=== PATIENT | female | born 1950 | race Caucasian/White ===

== ENCOUNTER 2022-01-06 16:49 | Observation (INO) ==
[2022-01-07] MEDS ORDERED: *HR* Dextrose 50 % in Water (Syg) 50 ML SYRINGE IVP PRN (02:55)
[2022-01-07] MEDS ORDERED: Dextrose Gel 15 GM/37.5 ML TUBE PO PRN ×2 (02:55)
[2022-01-07] MEDS ORDERED: D5% in Water 1,000 ML IVC PRN (02:55)
[2022-01-07] MEDS ORDERED: Ondansetron 4 MG/2 ML VIAL IVP PRN (02:56)
[2022-01-07] MEDS ORDERED: Naloxone 0.4 MG/ML INJ IVP PRN (02:56)
[2022-01-07] MEDS ORDERED: Acetaminophen 325 MG TABLET PO PRN (02:56)
[2022-01-07] MEDS ORDERED: Nitroglycerin 0.4 MG TAB.SUBL SL PRN (03:00)
[2022-01-07 03:26] LABS: White Blood Count 8.2 K/mcL (4.3-11.1)
[2022-01-07 03:27] LABS: Basophils % 0.4 %; Eosinophils # 0.1 K/mcL (0.0-0.6); Eosinophils % 1.7 %; Hematocrit 37.8 % (35.3-44.9); Immature Granulocytes % 0.4 % (0-4); Lymphocytes # 3.2 K/mcL (0.6-4.6); Lymphocytes % 38.7 %; Mean Corpuscular HGB Conc 34.4 g/dL (31.6-35.5); Mean Corpuscular Hemoglobin 29.7 pg (28.0-33.3); Mean Corpuscular Volume 86.3 fL (83.0-100.0); Mean Platelet Volume 9.1 fL (9.4-12.4); Monocytes # 0.4 K/mcL (0.0-1.3); Monocytes % 5.4 %; Neutrophils # 4.4 K/mcL (1.6-8.9); Platelet Count 266 K/mcL (140-400); Red Blood Count 4.38 M/mcL (3.82-4.97); Red Cell Distribution Width 12.4 % (11.5-14.5); Segmented Neutrophils % 53.4 %
[2022-01-07 03:48] LABS: INR 1.7; Prothrombin Time 18.8 Seconds (9.4-12.1)
[2022-01-07 03:50] LABS: % Iron Saturation 24 % (15-50); Alanine Aminotransferase 20 Units/L (7-52); Albumin 3.7 g/dL (3.5-5.7); Albumin/Globulin Ratio 1.2 (1.1-2.2); Alkaline Phosphatase 70 Units/L (34-104); Aspartate Amino Transferase 21 Units/L (13-39); BUN/Creatinine Ratio 34 (6-26); Bilirubin,Total 0.3 mg/dL (0.3-1.0); Blood Urea Nitrogen 23 mg/dL (8-23); Calcium 9.9 mg/dL (8.6-10.3); Carbon Dioxide 26 mEq/L (23-29); Chloride 104 mEq/L (98-107); Chol/HDL Ratio 4.2 (0-4.9); Cholesterol 193 mg/dL (< 200); Glucose 133 mg/dL (70-105); HDL Cholesterol 46 mg/dL (40-59); Iron 90 mcg/dL (50-170); LDL Cholesterol,Calculated 115 mg/dL (< 100); Magnesium 1.7 mg/dL (1.6-2.6); Osmolality,Calculated 294 (280-300); Potassium 3.9 mEq/L (3.5-5.1); Sodium 139 mEq/L (136-145); Total Protein 6.7 g/dL (6.4-8.9); Transferrin 265 mg/dL (203-362); Triglycerides 159 mg/dL (< 150)
[2022-01-07 03:51] LABS: Activated Partial Thrombo Time 36.5 Seconds (26.0-36.0)
[2022-01-07] MEDS ORDERED: Morphine Sulfate 2 MG/ML SYRINGE IVP PRN (04:00)
[2022-01-07 04:02] LABS: Thyroid Stimulating Hormone 4.677 mcIU/mL (0.340-5.600)
[2022-01-07] MEDS ORDERED: *HR* Heparin 5,000 UNIT/ML VIAL IVP PRN ×2 (04:06)
[2022-01-07] MEDS ORDERED: *HR* Heparin 5,000 UNIT/ML VIAL IVP ONE (04:06)
[2022-01-07 04:08] LABS: Ferritin 172 ng/mL (10-120)
[2022-01-07] MEDS ORDERED: Heparin 25,000UNIT/250ML 1/2NS 25,000 UNIT/250 ML IV.SOLN IVC SCH ×2 (04:15→12:50)
[2022-01-07 04:18] LABS: Estimated Average Glucose 134 mg/dl; Hemoglobin A1C 6.3 %
[2022-01-07 04:45] LABS: Folate > 22.3 ng/mL (3.0-16.0); Vitamin B12 918 pg/mL (250-1100)
[2022-01-07] MEDS: Insulin LISPRO 300 UNITS/3 ML VIAL SUBQ SCH ×2 (06:57→11:48)
[2022-01-07] MEDS ORDERED: Aspirin Enteric Coated 81 MG Tablet PO SCH (09:00)
[2022-01-07 10:01] LABS: Bacteria,Urine Many per hpf (None-Few); Bilirubin,Urine Negative (Negative); Blood,Urine Negative (Negative); Budding Yeast,Urine Few per hpf (None Seen); Clarity,Urine Turbid (Clear); Color,Urine Light-Yellow (Yellow); Glucose,Urine (UA) Normal (Normal); Ketones,Urine Negative (Negative); Leukocyte Esterase,Urine Large (Negative); Mucus,Urine Few per lpf (None-Few); Nitrite,Urine Positive (Negative); PH,Urine 5.5 pH Units (5.0-8.0); Protein,Urine Trace mg/dL (Neg-Trace); Specific Gravity,Urine 1.015 (1.010-1.025); Urobilinogen,Urine Normal (Normal); WBC,Urine TNTC per hpf (0-3)
[2022-01-07 10:28] VITALS: BP 167/88; PULSE 63; TEMP 98.1; O2SAT 97
== END 2022-01-07 14:45 | disposition home or self-care (01) ==
LOC: 3BNU → SUATTDRO 22:06
PROVIDERS: ADMIT Pharmacist; ATTEND Internal Medicine

== ENCOUNTER 2022-03-12 15:06 | Inpatient (IN) ==
[2022-03-12] MEDS ORDERED: 0.9 % Sodium Chloride 500 ML IVC ONE (18:06)
[2022-03-12] MEDS ORDERED: Acetaminophen 325 MG TABLET PO PRN (18:46)
[2022-03-12] MEDS ORDERED: Ondansetron 4 MG/2 ML VIAL IVP PRN (18:46)
[2022-03-12] MEDS ORDERED: Naloxone 0.4 MG/ML INJ IVP PRN (18:46)
[2022-03-12 20:32] LABS: Magnesium 1.7 mg/dL (1.6-2.6); Phosphorous 2.5 mg/dL (2.7-4.5)
[2022-03-12 21:21] LABS: INR 1.2
[2022-03-12 21:23] LABS: Activated Partial Thrombo Time 27.9 Seconds (26.0-36.0)
[2022-03-12 21:30] LABS: Heparin anti-factor XA UFH < 0.04 IU/mL (0.30-0.70)
[2022-03-12] MEDS ORDERED: *HR* Heparin 5,000 UNIT/ML VIAL IVP ONE (21:33)
[2022-03-12] MEDS ORDERED: *HR* Heparin 5,000 UNIT/ML VIAL IVP PRN (21:33)
[2022-03-12] MEDS ORDERED: D5% in Water 1,000 ML IVC PRN (21:45)
[2022-03-12] MEDS ORDERED: *HR* Dextrose 50 % in Water (Syg) 50 ML SYRINGE IVP PRN (21:45)
[2022-03-12] MEDS ORDERED: Dextrose Gel 15 GM/37.5 ML TUBE PO PRN ×2 (21:45)
[2022-03-12] MEDS: Heparin 25,000UNIT/250ML 1/2NS 25,000 UNIT/250 ML IV.SOLN IVC SCH (22:19)
[2022-03-12] MEDS: Gabapentin 300 MG CAPSULE PO SCH (22:21)
[2022-03-12] MEDS: Melatonin 3 MG TABLET PO PRN (22:21)
[2022-03-13 04:46] LABS: Basophils % 0.2 %; Eosinophils # 0.1 K/mcL (0.0-0.6); Eosinophils % 0.5 %; Hematocrit 28.9 % (35.3-44.9); Hemoglobin 9.7 g/dL (11.5-15.4); Immature Granulocytes % 0.5 % (0-4); Lymphocytes # 2.1 K/mcL (0.6-4.6); Mean Corpuscular HGB Conc 33.6 g/dL (31.6-35.5); Mean Corpuscular Hemoglobin 28.8 pg (28.0-33.3); Mean Corpuscular Volume 85.8 fL (83.0-100.0); Monocytes # 0.6 K/mcL (0.0-1.3); Monocytes % 5.1 %; Neutrophils # 8.3 K/mcL (1.6-8.9); Platelet Count 330 K/mcL (140-400); Red Blood Count 3.37 M/mcL (3.82-4.97); Segmented Neutrophils % 74.7 %; White Blood Count 11.1 K/mcL (4.3-11.1)
[2022-03-13 05:15] LABS: BUN/Creatinine Ratio 27 (6-26); Blood Urea Nitrogen 15 mg/dL (8-23); Calcium 8.7 mg/dL (8.6-10.3); Carbon Dioxide 28 mEq/L (23-29); Chloride 104 mEq/L (98-107); Glucose 149 mg/dL (70-105); Osmolality,Calculated 290 (280-300); Potassium 3.6 mEq/L (3.5-5.1); Sodium 138 mEq/L (136-145)
[2022-03-13] MEDS: *HR* Heparin 5,000 UNIT/ML VIAL IVP PRN ×3 (05:44→20:47)
[2022-03-13] MEDS: Gabapentin 300 MG CAPSULE PO SCH ×3 (07:46→19:46)
[2022-03-13] MEDS ORDERED: Sennosides 8.6 MG TABLET PO ONE (07:47)
[2022-03-13] MEDS ORDERED: Multivit/Ca/Min/Fe/FA 1 TAB TABLET PO SCH (09:00)
[2022-03-13] MEDS ORDERED: *HR* Metoprolol 5 MG/5 ML VIAL IVP ONE ×2 (12:51→12:52)
[2022-03-13 15:51] VITALS: O2SAT 96
[2022-03-13] MEDS ORDERED: Metoprolol XL (24 HR) Succ 25 MG TAB.ER.24H PO SCH (18:00)
[2022-03-13 19:46] VITALS: BP 157/79; PULSE 74; TEMP 99.7
[2022-03-13] MEDS: Melatonin 3 MG TABLET PO PRN (19:46)
[2022-03-13] MEDS: Heparin 25,000UNIT/250ML 1/2NS 25,000 UNIT/250 ML IV.SOLN IVC SCH (19:47)
[2022-03-14] MEDS ORDERED: Aspirin Enteric Coated 81 MG Tablet PO SCH (09:00)
[2022-03-14] MEDS ORDERED: Magnesium Oxide 400 MG TABLET PO SCH (09:00)
== END 2022-03-13 23:59 | disposition other institution (70) | DRG 310 ==
LOC: 3NENU → SUATTDRO 17:20
PROVIDERS: ADMIT Internal Medicine; ATTEND Internal Medicine